=== PATIENT | male | born 1970 | race Caucasian/White ===

== ENCOUNTER → 2025-10-06 | Outpatient (CLI) | payer OTHER ==
--- NOTE | 2025-10-06 13:42 | HMCIMG ---
CT CORONARY CALCIUM SCORE Clinical Indication: [facility] SCREENING (Hx) / Technique: Non-contrast, ECG-gated CT scan of the heart performed with thin-section axial images. Coronary calcium scoring was performed using the Agatston method. Findings: Left Main Coronary Artery (LMCA): No calcified plaque detected. Left Anterior Descending (LAD) Artery: No calcified plaque detected. Left Circumflex (LCx) Artery: No calcified plaque detected. Right Coronary Artery (RCA): No calcified plaque detected. Total Agatston Calcium Score:0 Impression: Coronary artery calcium score of 0, indicating no detectable coronary artery calcification. Findings are consistent with a very low risk of obstructive coronary artery disease at the time of examination. /[place]
== END | disposition home or self-care (01) ==
LOC: RAH 07:50
PROVIDERS: ATTEND Family Medicine
DX: Z13.6 Encounter for screening for cardiovascular disorders (principal)
CPT/HCPCS: 75571